=== PATIENT | male | born 1990 | race Hispanic/Latino ===

== ENCOUNTER 2023-09-25 10:57 | Emergency (ER) | payer SELFPAY ==
[2023-09-25] MEDS ORDERED: Ketorolac Tromethamine 30 MG (1 mL) VIAL ONE (11:16)
[2023-09-25] MEDS ORDERED: Ondansetron PF 4 MG/2 ML Vial ONE (11:16)
[2023-09-25 11:55] LABS: #Basophils 0.05 10x3/uL (0.0-0.2); %Basophils 0.6 % (0.0-1.0); %Eosinophils 1.4 % (0.0-10.0); %Lymphocytes 30.7 % (21.0-51.0); %Monocytes 8.5 % (0.0-10.0); %Neutrophils 57.7 % (42.0-75.0); Hematocrit 49.4 % (42.0-52.0); Hemoglobin 17.6 g/dL (14.0-18.0); Mean Corpuscular HGB CONC 35.6 g/dL (32.0-36.0); Mean Corpuscular Volume 92.7 fL (78.0-98.0); Mean Platelet Volume 11.6 fL (7.4-10.4); Platelet Count 261 10x3/uL (130-400); RBC Distribution Width 11.9 % (11.5-14.5); Red Blood Cell (RBC) Count 5.33 mill/uL (4.70-6.10)
[2023-09-25 12:09] LABS: ALT (SGPT) 88 U/L (8-55); AST (SGOT) 44 U/L (5-34); Albumin 4.1 g/dL (3.5-5.0); Alkaline Phosphatase 82 U/L (40-110); Anion Gap 13 mmol/L (10-20); BUN (Urea Nitrogen) 9 mg/dL (8.9-20.6); Bilirubin, Total 0.5 mg/dL (0.2-1.2); Calc. Creatinine Clearance 0 mL/min (70-130); Calcium 9.3 mg/dL (7.8-10.44); Carbon Dioxide 24 mmol/L (22-29); Chloride 103 mmol/L (98-107); Estimated GFR 120; Globulin 3.5 g/dL (2.4-3.5); Glucose 93 mg/dL (70-105); Lipase 26 U/L (8-78); Potassium 3.8 mmol/L (3.5-5.1); Protein, Total 7.6 g/dL (6.0-8.3); Sodium 136 mmol/L (136-145)
[2023-09-25 12:15] LABS: Troponin I Less than 0.010 ng/mL (< 0.028)
== END 2023-09-25 14:00 | disposition home or self-care (01) ==
LOC: ERS 10:57
DX: R07.9 Chest pain, unspecified (principal); I10 Essential (primary) hypertension; F17.210 Nicotine dependence, cigarettes, uncomplicated
CPT/HCPCS: 71045; 80053; 83690; 84484; 85025; 93005; 96374; J1885; J2405